=== PATIENT | female | born 1975 | race Caucasian/White ===

== ENCOUNTER 2018-12-11 20:54 | Emergency (ER) | payer OTHER ==
[~2018-12-11] VITALS: Ht 152.4 cm; Wt 70.3 kg
[~2018-12-11 20:54] MED LIST: IBUP-2213 PO
[2018-12-11 21:02] VITALS: BP 124/77
--- NOTE | 2018-12-11 21:12 | NUR ---
PT TRIAGED, R HAND LAC CLEANSED WITH NS AND GAUZE, PAT DRY, COVERED WITH DRESSING AND KERLIX, BLEEDING CONTROLLED. SENT BACK TO LOBBY WITH .
--- NOTE | 2018-12-11 22:07 | NUR ---
PT WENT TO XRAY BY WHEEL CHAIR
[2018-12-11] MEDS ORDERED: LIDOCAINE 1% 500 MG/50 ML VIAL INJ SCH (22:30)
--- NOTE | 2018-12-11 22:35 | NUR ---
PT AMBULATED TO ER BED 7
--- NOTE | 2018-12-11 22:39 | NUR ---
43 y/o F presentd to ED with lacteration to R pinky finger. Per pt, " i was washing dishes and i stuck my hand into the glass and it shattered. i was bleeding for 20 mins." small lacteration to R pinky finger. bleeding controlled at this time. full ROM to R hand. no numbness ro tingling.
[2018-12-11] MEDS ORDERED: LIDOCAINE MPF 1% 5mL VIAL ONE (23:03)
--- NOTE | 2018-12-11 23:25 | NUR ---
DR COELLO AT BEDSIDE FOR LAC REPAIR
[2018-12-11] MEDS ORDERED: BACITRACIN OINT 500 UNITS/GM PKT TP ONE (23:45)
[2018-12-11] MEDS ORDERED: IBUPROFEN 600 MG TAB PO ONE (23:45)
--- NOTE | 2018-12-11 23:50 | NUR ---
PT WOUND COVERED IN BACITRACIN, WRAPPED WITH LUIS MIGUEL WRAP. FINGER SPLINT APPLIED TO 5TH DIGIT FOR SUPPORT. +CSM
[2018-12-11 23:53] VITALS: BP 124/77
== END 2018-12-11 23:53 | disposition home or self-care (01) ==
LOC: MED 20:54
DX: S61.411A Laceration without foreign body of right hand, initial encounter (principal); Z79.899 Other long term (current) drug therapy; Z88.6 Allergy status to analgesic agent; W25.XXXA Contact with sharp glass, initial encounter; Y93.89 Activity, other specified; Y92.89 Other specified places as the place of occurrence of the external cause; Y99.8 Other external cause status
CPT/HCPCS: 12001; 73130; 99283; J2001

== ENCOUNTER 2020-05-19 07:46 | Emergency (ER) | payer OTHER ==
[~2020-05-19] VITALS: Ht 152.4 cm; Wt 75.7 kg
[2020-05-19 08:11] VITALS: BP 162/96
[2020-05-19] MEDS ORDERED: DEXAMETHASONE 10 MG/ML VIAL PO STA (08:23)
[2020-05-19] MEDS ORDERED: PENICILLIN G BENZATHINE C-R 1.2 MU/2 ML SYR IM ONE (08:25)
[2020-05-19] MEDS ORDERED: KETOROLAC 30 MG/ML VIAL IM ONE (08:25)
[2020-05-19] MEDS ORDERED: KETOROLAC 15 MG/ML VIAL ONE (08:32)
[2020-05-19 09:20] VITALS: BP 162/96
== END 2020-05-19 09:37 | disposition home or self-care (01) ==
LOC: MED 07:46
DX: J02.9 Acute pharyngitis, unspecified (principal); M13.80 Other specified arthritis, unspecified site
CPT/HCPCS: 96372; 99284; J0558; J1100; J1885